=== PATIENT | female | born 1940 | race Caucasian/White ===

== ENCOUNTER → 2016-04-11 | Outpatient (CLI) | payer MEDICARE ==
[~2016-04-11] MED LIST: ADVAI250I INH; ASPI81TA82 PO; ATOR20TA PO; BROV15NE INH; GUAI600 PO; IPRA.5I INH; LISI10 PO; PRED5TAB PO; SPIRCAP INH; TRAZ50TA4 PO
--- NOTE | 2016-04-13 12:27 | RSPPFT ---
DATE OF PROCEDURE: 04/11/16 COMMENTS: Spirometry shows FVC of 2.0 at 65% of predicted, FEV1 of 0.9 at 45%, FEV1/FVC ratio is decreased. Flow is decreased at FEF 25, FEF 50, FEF 75 and FEF 25-75. There is no response after bronchodilator treatment. Lung volumes show residual volume is increased. TLC is increased. Diffusion capacity is decreased. Flow volume loop indicates an obstructive pattern. IMPRESSION: 1. Moderately severe obstructive lung disease. 2. No response after bronchodilator treatment. 3. Lung volumes show hyperinflation. 4. Moderate loss in diffusion capacity.
== END ==
LOC: HRSP 13:02
PROVIDERS: ATTEND Specialist
DX: J44.9 Chronic obstructive pulmonary disease, unspecified (principal)
CPT/HCPCS: 94060; 94726; 94729

== ENCOUNTER 2017-03-10 10:40 | Emergency (ER) | payer MEDICARE ==
[~2017-03-10] VITALS: Ht 170.2 cm; Wt 73.0 kg
[2017-03-10 10:42] VITALS: BP 207/94; PULSE 109; RESP 20; TEMP 97.4; O2SAT 93
[2017-03-10] MEDS ORDERED: cloNIDine HCL 0.2 MG TAB PO ONE (11:00)
--- NOTE | 2017-03-10 11:03 | PD ---
HPI Chief Complaint: Hypertension Time Seen by Provider: 10:49 Travel History International Travel<30 days: No Contact w/Intl Traveler<30days: No Traveled to known affect area: No History of Present Illness HPI The patient was seen and examined in the presence of the nurse. This patient has history of hypertension taking lisinopril 20 mg daily. She took it at 8 AM this morning. She tracks her blood pressures at home. She had a blood pressure in the 190 systolic and got worried about that and came to the ER. No chest pain or neurologic symptoms beyond mild intermittent headache. No thunderclap onset. It is not severe. She did not even mention it until review of systems. No alleviating factors. No exacerbating factors. Duration of significantly elevated blood pressures is about 24 hours PFSH Past Medical History Arthritis: No Asthma: No Autoimmune Disease: No Blood Disorders: No Anxiety: Yes Depression: No Heart Rhythm Problems: No Cancer: Yes (breast) Cardiovascular Problems: No High Cholesterol: Yes Chemotherapy: Yes Chest Pain: No Congestive Heart Failure: No COPD: Yes Cerebrovascular Accident: Yes (2013) Diabetes: No Diminished Hearing: No Endocrine: No GERD: No Genitourinary: No Headaches: Yes Hepatitis: No Hiatal Hernia: No Hypertension: Yes Immune Disorder: No Kidney Stones: No Musculoskeletal: Yes Neurologic: No Psychiatric: Yes Reproductive: Yes (HYSTERECTOMY R/T FIBROIDS) Respiratory: Yes (COPD) Immunizations Current: Yes Migraines: Yes Radiation Therapy: No Renal Failure: No Seizures: No Sickle Cell Disease: No Sleep Apnea: No Thyroid Disease: No Ulcer: No Past Surgical History Abdominal Surgery: Yes (APPENDECTOMY) Appendectomy: Yes Body Medical Devices: breast implants bilat Cardiac Surgery: No Ear Surgery: No Endocrine Surgery: Yes (TONSILECTOMY) Eye Surgery: Yes (LASER SURGERY BILAT ) Genitourinary Surgery: Yes Gynecologic Surgery: Yes (hysterectomy) Hysterectomy: Yes Oral Surgery: No Pacemaker: No Thoracic Surgery: Yes (lumpectomy right breast double mastectomy) Tonsillectomy: Yes Other Surgery: Yes (R mastectomy) Social History Alcohol Use: Yes (rare) Tobacco Use: No Substance Use: No Allergies-Medications (Allergen,Severity, Reaction): Coded Allergies: No Known Allergies (Verified Adverse Reaction, Unknown, 03/10/17) Reported Meds & Prescriptions Reported Meds & Active Scripts Active Reported Lutein 20 Mg Cap 20 Mg PO DAILY Biotin 1 Mg Cap 1 Mg PO Latanoprost Opth Drops (Latanoprost) 0.005% Drops 1 Drop EACH EYE HS Refrigerate until opened. Proair Hfa 8.5 GM Inh (Albuterol Sulfate) 90 Mcg/Act Aer 1 Puff INH Q4H PRN 108 mcg/actuation Spiriva Respimat Inh (Tiotropium Inh) 1.25 Mcg/Act Aero 1 Puff INH DAILY 1.25 mcg = 1 inhalation Advair Diskus Inh (Fluticasone-Salmeterol Inh) 250-50 Mcg/Blist Aer 2 Puff INH DAILY Rinse mouth after use. Trazodone (Trazodone HCl) 50 Mg Tab 50 Mg PO HS Lisinopril 20 Mg Tab 20 Mg PO DAILY Montelukast (Montelukast Sodium) 10 Mg Tab 10 Mg PO HS Atorvastatin (Atorvastatin Calcium) 20 Mg Tab 20 Mg PO HS Review of Systems General / Constitutional: No: Fever Eyes: No: Visual changes HENT: Positive: Headaches Cardiovascular: No: Chest Pain or Discomfort Respiratory: No: Shortness of Breath Gastrointestinal: No: Abdominal Pain Genitourinary: No: Dysuria Musculoskeletal: No: Pain Skin: No Rash Neurologic: Positive: Headache, No: Weakness Psychiatric: No: Depression Endocrine: No: Polydipsia Hematologic/Lymphatic: No: Easy Bruising Physical Exam Narrative GENERAL: Well-nourished, well-developed patient in no apparent distress. SKIN: Focused skin assessment reveals no rash and nodules. Skin is Warm and dry. HEAD: Atraumatic. Normocephalic. EYES: Pupils equal and round. No scleral icterus. No injection or drainage. ENT: No nasal bleeding or discharge. Mucous membranes pink and moist. NECK: Trachea midline. No JVD. No meningeal signs CARDIOVASCULAR: Regular rate and rhythm. No murmur appreciated. RESPIRATORY: No accessory muscle use. Clear to auscultation. Breath sounds equal bilaterally. GASTROINTESTINAL: Abdomen soft, non-tender, nondistended. Hepatic and splenic margins not palpable. MUSCULOSKELETAL: No obvious deformities. No clubbing. No cyanosis. No edema. NEUROLOGICAL: Awake and alert. No obvious cranial nerve deficits. Motor grossly within normal limits. Normal speech. PSYCHIATRIC: Appropriate mood and affect; insight and judgment normal. Data Data Last Documented VS Vital Signs Date Time Temp Pulse Resp B/P (MAP) Pulse Ox O2 Delivery O2 Flow Rate FiO2 03/10/17 11:26 87 170/80 (110) 03/10/17 10:42 97.4 20 93 Orders Orders Clonidine (Catapres) (03/10/17 11:00) MDM Medical Decision Making Medical Screen Exam Complete: Yes Emergency Medical Condition: Yes Medical Record Reviewed: Yes Differential Diagnosis hypertensive urgency, accelerated hypertension, noncompliance Narrative Course I have reviewed the patient's electronic medical record. Reviewed her oncologist visit from October 2016 I reviewed her list of blood pressure that she's been tracking at home for the last few days Patient is neurologically intact. Her headache is minimal and does not require emergent imaging It is not consistent with subarachnoid hemorrhage I gave her dose of clonidine and will reassess. Her initial blood pressure here is 211 systolic. Repeat blood pressure 170/80 She's been continue to track her pressures and in the meantime we'll increase her lisinopril from 20 to 40 daily and make sure it's not getting too low. She will not take more than 40 mg a day. She will call her physician Sunday for follow-up and further recommendations Diagnosis Primary Impression: Accelerated hypertension Additional Instructions: The patient was advised to follow up with their physician and return if they worsen. Check and record blood pressure daily Can increase lisinopril to 40 mg daily Med/Other Pt SpecificInfo: Other Disposition: 01 DISCHARGE HOME Condition: Stable Yaw Cintron MD Mar 10, 2017 11:03
[2017-03-10] MEDS ORDERED: MONT10TA4 PO (11:12)
[2017-03-10] MEDS ORDERED: ATOR20TA15 PO (11:12)
[2017-03-10] MEDS ORDERED: ADVA250A INH (11:16)
[2017-03-10] MEDS ORDERED: LATA0.002 EACH EYE (11:16)
[2017-03-10] MEDS ORDERED: LUTE20CA PO (11:16)
[2017-03-10] MEDS ORDERED: TIOT1AER2 INH (11:16)
[2017-03-10] MEDS ORDERED: BIOT1CAP2 PO (11:16)
[2017-03-10] MEDS ORDERED: LISI-515 PO (11:16)
[2017-03-10] MEDS ORDERED: TRAZ50TA12 PO (11:16)
[2017-03-10] MEDS ORDERED: ALBUAER3 INH (11:16)
[2017-03-10 11:26] VITALS: BP 170/80; PULSE 87
[2017-03-10 11:58] VITALS: BP 144/77
== END 2017-03-10 12:06 | disposition home or self-care (01) ==
LOC: PHED 10:40
DX: I10 Essential (primary) hypertension (principal); E78.00 Pure hypercholesterolemia, unspecified; J44.9 Chronic obstructive pulmonary disease, unspecified; Z86.73 Personal history of transient ischemic attack (TIA), and cerebral infarction without residual deficits; Z85.3 Personal history of malignant neoplasm of breast
CPT/HCPCS: 99282